=== PATIENT | female | born 1975 | race Caucasian/White ===

== ENCOUNTER 2018-03-29 06:31 | Day surgery (SDC) | payer OTHER ==
[2018-03-29] MEDS ORDERED: LACTATED RINGERS 1,000 ML IV ONE (06:48)
[2018-03-29] MEDS ORDERED: MIDAZOLAM HCL 2 MG/2 ML VIAL ONE (08:48)
[2018-03-29] MEDS ORDERED: ONDANSETRON HCL/PF 4 MG/ 2ML VIAL ONE ×2 (08:48→08:51)
[2018-03-29] MEDS ORDERED: LACTATED RINGERS 1,000 ML IV.SOLN IV ONE ×2 (08:48)
[2018-03-29] MEDS ORDERED: KETAMINE HCL 10 MG/ML ML IJ ONE (08:48)
[2018-03-29] MEDS ORDERED: fentaNYL CITRATE/PF 100 MCG/2 ML INJ. ONE ×3 (08:48)
[2018-03-29] MEDS ORDERED: oxyCODONE/ACETAMINOPHEN 5/325 TABLET PO ONE (09:50)
== END 2018-03-29 10:50 | disposition home or self-care (01) ==
LOC: OPSURG 06:31
PROVIDERS: ATTEND Physical Medicine & Rehabilitation
DX: M47.817 Spondylosis without myelopathy or radiculopathy, lumbosacral region (principal)
CPT/HCPCS: 64635; 64636; A9270; J1815; J2250; J2405; J3010; J7120